=== PATIENT | female | born 1970 | race Caucasian/White ===

== ENCOUNTER 2016-03-09 23:52 | Emergency (ER) | payer MEDICARE ==
[~2016-03-09] VITALS: Ht 162.6 cm; Wt 55.0 kg
[~2016-03-09 23:52] MED LIST: ALPR.25 PO; CYMB60CA PO
[2016-03-10] VITALS (7 sets, daily range): BP systolic 89–110; BP diastolic 50–74; PULSE 64–86; RESP 13–20; TEMP 98.2–98.5; O2SAT 96–100
[2016-03-10] MEDS ORDERED: ALPR.25 PO (00:41)
[2016-03-10] MEDS ORDERED: CYMB60CA PO (00:41)
[2016-03-10] MEDS ORDERED: SODIUM CHLOR 0.9% 1000 ML INJ 1,000 ML IV ONE (01:00)
[2016-03-10] MEDS ORDERED: THIAMINE HCL 100 MG TAB PO ONE (01:00)
[2016-03-10] MEDS ORDERED: ONDANSETRON HCL 4 MG/2 ML VIAL IV PUSH ONE (01:00)
[2016-03-10 01:14] LABS: AUTOMATED NEUTROPHIL # 5.5 TH/MM3 (1.8-7.7); BASOPHIL # 0.1 TH/MM3 (0-0.2); BASOPHIL % 0.9 % (0.0-2.0); EOSINOPHIL % 0.6 % (0.0-4.0); HEMATOCRIT 37.6 % (35.0-46.0); HEMO FLAGS DIFF FINAL; LYMPH % 16.4 % (9.0-44.0); LYMPHOCYTE # 1.2 TH/MM3 (1.0-4.8); MEAN CELL VOLUME 84.6 FL (80.0-100.0); MEAN CORPUSCULAR HEMOGLOBIN 28.9 PG (27.0-34.0); MEAN CORPUSCULAR HGB CONC 34.1 % (32.0-36.0); MONO % 7.6 % (0.0-8.0); NEUT % 74.5 % (16.0-70.0); PLATELET COUNT 177 TH/MM3 (150-450); RED BLOOD COUNT 4.44 MIL/MM3 (4.00-5.30); RED CELL DISTRIBUTION WIDTH 13.3 % (11.6-17.2); WHITE BLOOD COUNT 7.4 TH/MM3 (4.0-11.0)
--- NOTE | 2016-03-10 02:08 | PD ---
HPI Chief Complaint: Alcohol/Drug Intoxication Time Seen by Provider: 00:47 Travel History International Travel<30 days: No Contact w/Intl Traveler<30days: No Traveled to known affect area: No History of Present Illness HPI 45yo F with depression, anxiety presents to the ED after drinking rum today. Pt admits to breaking up with boyfriend and had suicidal thoughts but did not specify plan. Denies taking any pills. States she drank too much and vomited. Denies any fall, abdominal pain, chest pain, sob, n/v, weakness or numbness. Pt takes cymbalta for depression. PFSH Past Medical History Arthritis: No Asthma: No Autoimmune Disease: No Blood Disorders: No Anxiety: No Depression: Yes Heart Rhythm Problems: No Cancer: No Cardiovascular Problems: No High Cholesterol: No Chemotherapy: No Chest Pain: No Congestive Heart Failure: No COPD: No Cerebrovascular Accident: No Diabetes: No Diminished Hearing: No Endocrine: No Gastrointestinal Disorders: Yes GERD: Yes Glaucoma: No Genitourinary: No Headaches: No Hepatitis: No Hiatal Hernia: No Hypertension: No Immune Disorder: No Kidney Stones: No Musculoskeletal: No Neurologic: No Psychiatric: No Reproductive: No Respiratory: No Migraines: No Myocardial Infarction: No Radiation Therapy: No Renal Failure: No Seizures: No Sickle Cell Disease: No Sleep Apnea: No Thyroid Disease: No Ulcer: No ?: Not : 0 Para: 0 Past Surgical History Abdominal Surgery: No AICD: No Appendectomy: No Arteriovenous Shunt: No Cardiac Surgery: No Cholecystectomy: No Ear Surgery: No Endocrine Surgery: No Eye Surgery: No Genitourinary Surgery: No Gynecologic Surgery: No Insulin Pump: No Joint Replacement: No Oral Surgery: Yes (JAW ALIGNED AGE 18) Pacemaker: No Thoracic Surgery: No Other Surgery: Yes (JAW ALIGNED AGE 18) Social History Alcohol Use: Yes Tobacco Use: No Substance Use: No Allergies-Medications (Allergen,Severity, Reaction): Coded Allergies: No Known Allergies (Verified , 03/10/16) Reported Meds & Prescriptions Reported Meds & Active Scripts Active Reported Xanax (Alprazolam) 0.25 Mg Tab 0.25 Mg PO DAILY PRN Cymbalta DR (Duloxetine HCl) 60 Mg Capdr 60 Mg PO DAILY Review of Systems Except as stated in HPI: all other systems reviewed are Neg Physical Exam Narrative GENERAL: 45yo F not in distress. SKIN: Warm and dry. HEAD: Atraumatic. Normocephalic. EYES: Pupils equal and round. No scleral icterus. No injection or drainage. ENT: No nasal bleeding or discharge. Mucous membranes pink and moist. NECK: Trachea midline. No JVD. CARDIOVASCULAR: Regular rate and rhythm. No murmur appreciated. RESPIRATORY: No accessory muscle use. Clear to auscultation. Breath sounds equal bilaterally. GASTROINTESTINAL: Abdomen soft, non-tender, nondistended. MUSCULOSKELETAL: No obvious deformities. No clubbing. No cyanosis. No edema. NEUROLOGICAL: Awake and alert. No obvious cranial nerve deficits. Motor grossly within normal limits. Normal speech. Mildly intoxicated. Data Data Last Documented VS Vital Signs Date Time Temp Pulse Resp B/P Pulse Ox O2 Delivery O2 Flow Rate FiO2 03/10/16 15:13 75 20 110/50 98 Room Air 03/10/16 12:51 98.5 Orders Complete Blood Count With Diff (03/10/16 00:58) Comprehensive Metabolic Panel (03/10/16 00:58) Drug Screen, Random Urine (03/10/16 00:58) Ed Urine Pregnancytest Poc (03/10/16 00:58) Electrocardiogram (03/10/16 00:58) Alcohol (Ethanol) (03/10/16 00:58) Salicylates (Aspirin) (03/10/16 00:58) Tylenol (Acetaminophen) (03/10/16 00:58) Psych Screen (03/10/16 00:58) Ondansetron Inj (Zofran Inj) (03/10/16 01:00) Sodium Chlor 0.9% 1000 Ml Inj (Ns 1000 M (03/10/16 01:00) Thiamine (Vit B1) (Vitamin B1) (03/10/16 01:00) Diet Regular Basic (03/10/16 Breakfast) Diet Regular Basic (03/10/16 Lunch) Diet Regular Basic (03/10/16 Dinner) Labs Laboratory Tests Test 03/10/16 03/10/16 01:00 02:10 White Blood Count 7.4 TH/MM3 Red Blood Count 4.44 MIL/MM3 Hemoglobin 12.8 GM/DL Hematocrit 37.6 % Mean Corpuscular Volume 84.6 FL Mean Corpuscular Hemoglobin 28.9 PG Mean Corpuscular Hemoglobin 34.1 % Concent Red Cell Distribution Width 13.3 % Platelet Count 177 TH/MM3 Mean Platelet Volume 10.1 FL Neutrophils (%) (Auto) 74.5 % Lymphocytes (%) (Auto) 16.4 % Monocytes (%) (Auto) 7.6 % Eosinophils (%) (Auto) 0.6 % Basophils (%) (Auto) 0.9 % Neutrophils # (Auto) 5.5 TH/MM3 Lymphocytes # (Auto) 1.2 TH/MM3 Monocytes # (Auto) 0.6 TH/MM3 Eosinophils # (Auto) 0.0 TH/MM3 Basophils # (Auto) 0.1 TH/MM3 CBC Comment DIFF FINAL Differential Comment Sodium Level 141 MEQ/L Potassium Level 3.4 MEQ/L Chloride Level 110 MEQ/L Carbon Dioxide Level 16.8 MEQ/L Anion Gap 14 MEQ/L Blood Urea Nitrogen 9 MG/DL Creatinine 0.62 MG/DL Estimat Glomerular Filtration 105 ML/MIN Rate Random Glucose 88 MG/DL Calcium Level 8.3 MG/DL Total Bilirubin 0.4 MG/DL Aspartate Amino Transf 15 U/L (AST/SGOT) Alanine Aminotransferase 15 U/L (ALT/SGPT) Alkaline Phosphatase 50 U/L Total Protein 6.7 GM/DL Albumin 3.6 GM/DL Salicylates Level LESS THAN 1.7 MG/DL Acetaminophen Level LESS THAN 2.0 MCG/ML Ethyl Alcohol Level 208 MG/DL Urine Opiates Screen NEG Urine Barbiturates Screen NEG Urine Amphetamines Screen NEG Urine Benzodiazepines Screen NEG Urine Cocaine Screen NEG Urine Cannabinoids Screen NEG MDM Medical Decision Making Medical Screen Exam Complete: Yes Emergency Medical Condition: Yes Differential Diagnosis Depression vs. alcohol intoxication vs. suicidal attempt Narrative Course 45yo F here with alcohol intoxication. Admits to drinking rum but also depressed with suicidal thoughts. When asked if she wanted to hurt herself, she did say yes so will ellison act patient for psych evaluation since pt has history of depression. Labs reviewed, no leukocytosis. K: 3.4. Co2 low at 16.8. Blood alcohol 208. Utox and acetaminophen, salicylate level negative. VS stable. Urine negative. Pt given zofran, thiamine and NS IVF. Medically clear for psych evaluation. Diagnosis Primary Impression: Alcohol intoxication Qualified Code: F10.120 - Alcohol intoxication, uncomplicated Patient Instructions: General Instructions Departure Forms: Tests/Procedures Additional Instructions: Please follow up with your PMD in 3-7 days. Return to the ED if symptoms worsen. Aislinn Hdz DO Mar 10, 2016 02:08
[2016-03-10 02:27] LABS: AMPHETAMINE, URINE NEG (NEG); BARBITURATES, URINE NEG (NEG); COCAINE, URINE NEG (NEG)
[2016-03-10 02:39] LABS: ACETAMINOPHEN LESS THAN 2.0 MCG/ML (10.0-30.0); ALKALINE PHOSPHATASE 50 U/L (45-117); TOTAL BILIRUBIN ADULT 0.4 MG/DL (0.2-1.0)
[2016-03-10 02:40] LABS: ALT (GPT) 15 U/L (10-53); ANION GAP 14 MEQ/L (5-15); AST (GOT) 15 U/L (15-37); BICARBONATE 16.8 MEQ/L (21.0-32.0); BLOOD UREA NITROGEN 9 MG/DL (7-18); CHLORIDE 110 MEQ/L (98-107); GLOMERULAR FILTRATION RATE 105 ML/MIN (>89); POTASSIUM 3.4 MEQ/L (3.5-5.1); SODIUM (NA) 141 MEQ/L (136-145)
--- NOTE | 2016-03-10 14:46 | EKG ---
Date Performed: 03/10/2016 Time Performed: 01:13:56 PTAGE: 45 years EKG: Sinus rhythm NORMAL ECG NO PREVIOUS TRACING DOCTOR: Eloy Arce Interpretating Date/Time 03/10/2016 14:45:28
--- NOTE | 2016-03-10 16:23 | PD.CONS ---
Provisional Diagnosis Admission Date [place] I. Alcohol-induced mood disorder, alcohol use disorder, anxiety and depression History of Present Illness Service Psychiatry Consult Requested By Primary Care Physician Allison Fields MD HPI The patient is a 45-year-old woman, domiciled alone in her own apartment, single, unemployed, supported by [facility], with a psychiatric history of depression, anxiety, 1 previous hospitalization, 1 previous suicidal attempt by OD, no significant medical history, alcohol use disorder, who was brought to the hospital under Du act active with a boyfriend because patient expressed suicidal ideation, no plan. Chart was reviewed, collateral information was unavailable at this moment, patient was seen and evaluated in [facility]. On psychiatric evaluation, patient was calm and cooperative, she was clinically sober, she explains that last night when she expressed suicidal ideation she was drunk "I didn't even know what he was telling, most probably I was trying to manipulate my boyfriend". At this moment patient denies suicidal or homicidal ideation, she denies depressive symptoms, anxiety, malini, perceptual disturbances. Patient denies visual and auditory hallucinations. Patient is oriented 3. On longitudinal observation, no delusions, paranoia, aggressive behavior, agitation, mood or behavioral dysregulation has been observed. Patient denies the use of illicit drugs, she reports occasional use of alcohol, last time she drank alcohol before last night was 3 months ago. Review of Systems Constitutional: DENIES: Diaphoretic episodes, Fatigue, Fever, Weight gain, Weight loss, Chills, Dizziness, Change in appetite, Night Sweats Endocrine: DENIES: Abnorml menstrual pattern, Heat/cold intolerance, Polydipsia , Polyuria, Polyphagia Eyes: DENIES: Blurred vision, Diplopia, Eye inflammation, Eye pain, Vision loss , Photosensitivity, Double Vision Ears, nose, mouth, throat: DENIES: Tinnitus, Hearing loss, Vertigo, Nasal discharge, Oral lesions, Throat pain, Hoarseness, Ear Pain, Running Nose, Epistaxis, Sinus Pain, Toothache, Odynophagia Respiratory: DENIES: Apneas, Cough, Snoring, Wheezing, Hemoptysis, Sputum production, Shortness of breath Cardiovascular: DENIES: Chest pain, Palpitations, Syncope, Dyspnea on Exertion , PND, Lower Extremity Edema, Orthopnea, Claudication Gastrointestinal: DENIES: Abdominal pain, Black stools, Bloody stools, Constipation, Diarrhea, Nausea, Vomiting, Difficulty Swallowing, Anorexia Musculoskeletal: DENIES: Joint pain, Muscle aches, Stiffness, Joint Swelling, Back pain, Neck pain Integumentary: DENIES: Abnormal pigmentation, Pruritus, Rash, Nail changes, Breast masses, Breast skin changes, Nipple discharge Hematologic/lymphatic: DENIES: Bruising, Lymphadenopathy Immunologic/allergic: DENIES: Eczema, Urticaria Neurologic: DENIES: Abnormal gait, Headache, Localized weakness, Paresthesias, Seizures, Speech Problems, Tremor, Poor Balance Psychiatric: DENIES: Anxiety, Confusion, Mood changes, Depression, Hallucinations, Agitation, Suicidal Ideation, Homicidal Ideation, Delusions Past Family Social History Coded Allergies: No Known Allergies (Verified , 03/10/16) Reported Medications Alprazolam (Xanax)0.25 Mg Tab0.25 Mg PO DAILY PRN (ANXIETY) Ref 0 03/10/[address] (Cymbalta DR)60 Mg Capdr60 Mg PO DAILY #30 CAP Ref 0 03/10/16 Family History She denies Social History Patient was born and raised in [place], she single, she has a boyfriend, she lives alone in an apartment, she has SSI, she finished high school Physical Exam Vital Signs Vital Signs Date Time Temp Pulse Resp B/P Pulse Ox O2 Delivery O2 Flow Rate FiO2 03/10/16 15:13 75 20 110/50 98 Room Air 03/10/16 12:51 98.5 Mental Status Examination Speech: Unremarkable Orientation: x3 Memory: Unremarkable Thought Process: Logical Thought Content: Unremarkable Hallucination Type: None Suicidal Ideation: No Previous Suicide Attempts: Yes Homicidal Ideation: No Previous Homicide Attempts: No Insight: Good Affect: Good Mood: Appropriate Motor Activity: Normal gait Assessment & Plan Problem List: (1) Alcohol abuse with alcohol-induced mood disorder Assessment & Plan: On psychiatric evaluation today the patient does not seem to have or report any depressive symptoms, anxiety, malini or perceptual disturbances. Patient denies suicidal or homicidal ideation. Patient does not meet criteria for psychiatric admission at this moment. Patient is safe to be discharged back to her house, she can continue her psychiatric care with outpatient psychiatrist, Du act will be lifted. ICD Code: F10.14 Assessment & Plan Estimated LOS: Lasha Sanders MD Mar 10, 2016 16:23
== END 2016-03-10 17:56 | disposition home or self-care (01) ==
LOC: NEPE 23:52 → NEPJ 03-10 17:56
DX: F10.14 Alcohol abuse with alcohol-induced mood disorder (principal); F32.9 Major depressive disorder, single episode, unspecified; Y90.7 Blood alcohol level of 200-239 mg/100 ml; Z79.899 Other long term (current) drug therapy
CPT/HCPCS: 80053; 80307; 84703; 85025; 93005; 96361; 96374; 99283; G0480; J2405; J7030; 80320; 80329; G0481

== ENCOUNTER 2017-03-12 17:09 | Emergency (ER) | payer MEDICARE ==
[~2017-03-12] VITALS: Ht 154.9 cm; Wt 45.5 kg
[2017-03-12 17:13] VITALS: BP 112/68; PULSE 85; RESP 16; TEMP 98.1; O2SAT 99
--- NOTE | 2017-03-12 20:23 | PD ---
HPI Chief Complaint: Skin Problem Time Seen by Provider: 20:13 Travel History International Travel<30 days: No Contact w/Intl Traveler<30days: No Traveled to known affect area: No History of Present Illness HPI 46-year-old female presents to [facility] department for evaluation of a painful lesion in her right axilla. Patient states she noticed this 2 days ago. She is concerned she has an ingrown hair. Pain is moderate, mostly exacerbated by touch. She has had no fever or chills. She has no other symptoms to report. PFSH Past Medical History Arthritis: No Asthma: No Autoimmune Disease: No Blood Disorders: No Anxiety: No Depression: Yes Heart Rhythm Problems: No Cancer: No Cardiovascular Problems: No High Cholesterol: No Chemotherapy: No Chest Pain: No Congestive Heart Failure: No COPD: No Cerebrovascular Accident: No Diabetes: No Diminished Hearing: No Endocrine: No Gastrointestinal Disorders: Yes GERD: Yes Glaucoma: No Genitourinary: No Headaches: No Hepatitis: No Hiatal Hernia: No Hypertension: No Immune Disorder: No Kidney Stones: No Musculoskeletal: No Neurologic: No Psychiatric: No Reproductive: No Respiratory: No Migraines: No Myocardial Infarction: No Radiation Therapy: No Renal Failure: No Seizures: No Sickle Cell Disease: No Sleep Apnea: No Thyroid Disease: No Ulcer: No ?: Not LMP: 02/14/2017 : 0 Para: 0 Past Surgical History Abdominal Surgery: No AICD: No Appendectomy: No Arteriovenous Shunt: No Cardiac Surgery: No Cholecystectomy: No Ear Surgery: No Endocrine Surgery: No Eye Surgery: No Genitourinary Surgery: No Gynecologic Surgery: No Insulin Pump: No Joint Replacement: No Oral Surgery: Yes (JAW ALIGNED AGE 18) Pacemaker: No Thoracic Surgery: No Other Surgery: Yes (JAW ALIGNED AGE 18) Social History Alcohol Use: Yes Tobacco Use: No Substance Use: No Allergies-Medications (Allergen,Severity, Reaction): Coded Allergies: No Known Allergies (Verified , 03/10/16) Reported Meds & Prescriptions Reported Meds & Active Scripts Active Keflex (Cephalexin) 500 Mg Cap 500 Mg PO Q6H 5 Days Bactrim DS (Sulfamethoxazole-Trimethoprim) 800-160 Mg Tab 1 Tab PO BID Reported Xanax (Alprazolam) 0.25 Mg Tab 0.25 Mg PO DAILY PRN Cymbalta DR (Duloxetine HCl) 60 Mg Capdr 60 Mg PO DAILY Review of Systems Except as stated in HPI: all other systems reviewed are Neg Physical Exam Narrative GENERAL: Well-nourished, well-developed male patient in no acute distress.. SKIN: Focused skin assessment warm/dry. 3 mm in diameter raised reddened bump in the right axilla. It is tender to palpate. There is associated adenopathy HEAD: Normocephalic. EYES: No scleral icterus. No injection or drainage. NECK: Supple, trachea midline. No JVD or lymphadenopathy. CARDIOVASCULAR: Regular rate and rhythm without murmurs, gallops, or rubs. RESPIRATORY: Breath sounds equal bilaterally. No accessory muscle use. MUSCULOSKELETAL: No cyanosis, or edema. BACK: Nontender without obvious deformity. No CVA tenderness. Data Data Last Documented VS Vital Signs Date Time Temp Pulse Resp B/P (MAP) Pulse Ox O2 Delivery O2 Flow Rate FiO2 03/12/17 20:47 03/12/17 17:13 98.1 85 16 99 Orders Orders Ed Discharge Order (03/12/17 20:34) [facility] Medical Decision Making Medical Screen Exam Complete: Yes Emergency Medical Condition: Yes Medical Record Reviewed: Yes Differential Diagnosis Folliculus versus abscess versus cyst Narrative Course 46-year-old since emergency department for evaluation of painful lesion in her right axilla. Physical exam is consistent with a folliculitis. She is counseled on care. I have her that this may develop into an abscess that needs to be drained. She agrees to return immediately with any acute worsening of symptoms. Diagnosis Primary Impression: Folliculitis of right axilla Referrals: Primary Care Physician Patient Instructions: Folliculitis (ED), General Instructions Additional Instructions: Warm compresses to the affected area Do not squeeze the area Follow up with dermatology Follow up with your primary care provider Return to ED with acute worsening of symptoms Med/Other Pt SpecificInfo: Prescription(s) given Scripts Cephalexin (Keflex) 500 Mg Cap 500 MG PO Q6H for Infection for 5 Days, #20 CAP 0 Refills Prov: Heather Poon 03/12/17 Sulfamethoxazole-Trimethoprim (Bactrim DS) 800-160 Mg Tab 1 TAB PO BID for Infection, #20 TAB 0 Refills Prov: Heather Poon 03/12/17 Disposition: 01 DISCHARGE HOME Condition: Stable Heather Poon Mar 12, 2017 20:23
[2017-03-12] MEDS ORDERED: BACT800T5 PO (20:36)
[2017-03-12] MEDS ORDERED: CEPH-460 PO (20:36)
== END 2017-03-12 23:14 | disposition home or self-care (01) ==
LOC: NEPK 17:09
DX: L73.9 Follicular disorder, unspecified (principal)
CPT/HCPCS: 99284